=== PATIENT | male | born 1960 | race Two or more races ===

== ENCOUNTER 2016-06-21 11:09 | Emergency (ER) | payer OTHER ==
[~2016-06-21] VITALS: Ht 177.8 cm; Wt 78.5 kg
[~2016-06-21 11:09] MED LIST: CYCLOBENZAPRINE10 MG ORAL; IBUPROFEN800 MG ORAL
[2016-06-21] MEDS ORDERED: OMEPRAZOLE10 M1 ORAL (11:45)
[2016-06-21] MEDS ORDERED: LISINOPRIL2.5 MG ORAL (11:45)
[2016-06-21] MEDS ORDERED: IBUPROFEN600 MG ORAL (11:50)
--- NOTE | 2016-06-21 11:52 | Emergency Room Report ---
History of Present Illness General Chief Complaint: Lower Extremity Injury Source: Patient Present Illness HPI Patient twisted and tripped over stairs on Friday injuring his left foot and ankle area As the swelling persisted in the left ankle and discomfort continued Patient presents for further eval Denies any knee pain denies any pelvic pain denies any other loss of consciousness or head injury Pain is 4/10 localized to the dorsal foot and left lateral ankle Pain is worse with ambulation Allergies: Coded Allergies: No Known Allergies (Unverified , 09/25/15) Patient History Past Medical History: see triage record Pertinent Family History: none Reviewed Nursing Documentation: PMH: Agreed, PSxH: Agreed Nursing Documentation-PMH Past Medical History: No History, Except For Hx Hypertension: Yes Hx Asthma: Yes Review of Systems All Other Systems: negative except mentioned in HPI Physical Exam Vital Signs Date Time Temp Pulse Resp B/P Pulse Ox O2 Delivery O2 Flow Rate FiO2 06/21/16 11:13 97.9 150 14 173/91 96 Room Air Sp02 EP Interpretation: reviewed, normal General Appearance: well appearing, no apparent distress Head: normocephalic, atraumatic Eyes: bilateral eye EOMI, bilateral eye PERRL ENT: hearing grossly normal, normal pharynx, TMs + canals normal, uvula midline Neck: supple Musculoskeletal: swelling - Lateral left ankle, patient able to flex and extend however, eversiont does cause increased pain Neurologic: alert, oriented x3, responsive Skin: other - Swelling is noted above Lymphatic: no adenopathy Procedures Splinting Splinting : Consent: Verbal Location: Left ankle Pre-Made Type: aircast Splint: sugar-tong Pre-Proc Neuro Vasc Exam: normal Post-Proc Neuro Vasc Exam: normal Patient Tolerated: Well Complications: None Medical Decision Making Diagnostic Impression: Primary Impression: foot sprain Additional Impression: ankle sprain ER Course Given the patient's history and presentation Imaging studies were obtained no obvious acute fractures identified Given the swelling and discomfort patient had splint applied as noted above At this time requires close outpatient followup Other X-Ray Diagnostic Results Other X-Ray Diagnostic Results #1: EP Interpretation: Yes Findings: no fractures, no dislocation, other - Soft tissue swelling Number of Views: 3 - left ankle Other X-Ray Diagnostic Results #2: EP Interpretation: Yes Findings: no fractures, no dislocation, no soft tissue swelling Number of Views: 3 - left foot Last Vital Signs Date Time Temp Pulse Resp B/P Pulse Ox O2 Delivery O2 Flow Rate FiO2 06/21/16 11:13 97.9 150 14 173/91 96 Room Air Status: improved Disposition: HOME, SELF-CARE Condition: Improved Scripts Ibuprofen* (MOTRIN*) 600 Mg Tablet 600 MG ORAL Q8H Y for For Pain, #20 TAB 0 Refills Prov: MAYA AIKEN D.O. 06/21/16 Referrals: [facility]ERR[facility] (PCP) Patient Instructions: Ankle Sprain, Foot Sprain Additional Instructions: Patient is provided with the discharge instructions notified to follow up with primary doctor in the next 2-3 days otherwise return to the er with any worsening symptoms. Please note that this report is being documented using [employer] technology. This can lead to erroneous entry secondary to incorrect interpretation by the dictating instrument. MAYA AIKEN D.O. June 21, 2016 11:52
--- NOTE | 2016-06-21 12:31 | Diagnostic Imaging Report ---
Indication: Pain Comparison: None Findings: 3 views of the left ankle obtained. No fracture or malalignment seen. There is lateral soft tissue swelling. Impression: Lateral soft tissue swelling
--- NOTE | 2016-06-21 12:31 | Diagnostic Imaging Report ---
Indication: Pain Comparison: None Findings: 3 views of the left foot were obtained. No acute fractures, malalignment, erosions or periostitis are identified. Bone mineralization is within normal limits. Soft tissues are unremarkable. Impression: No acute findings
[2016-06-21 12:49] VITALS: BP 143/81
== END 2016-06-21 12:24 | disposition home or self-care (01) ==
LOC: EMR 11:34
DX: S93.402A Sprain of unspecified ligament of left ankle, initial encounter (principal); S93.602A Unspecified sprain of left foot, initial encounter; W10.9XXA Fall (on) (from) unspecified stairs and steps, initial encounter; Y92.89 Other specified places as the place of occurrence of the external cause; I10 Essential (primary) hypertension; J45.909 Unspecified asthma, uncomplicated
CPT/HCPCS: 29540; 99284